=== PATIENT | male | born 1935 | race Two or more races ===

== ENCOUNTER 2017-09-15 17:15 | Inpatient (IN) | payer OTHER ==
[~2017-09-15] VITALS: Ht 165.1 cm; Wt 83.9 kg
[2017-09-15] MEDS ORDERED: DONEPEZIL HCL10 MG PO (22:05)
[2017-09-15] MEDS ORDERED: FENOFIBRATE145 MG PO (22:05)
[2017-09-15] MEDS ORDERED: LOSARTAN POTAS100 MG PO (22:05)
[2017-09-15] MEDS ORDERED: TRIAMTERENE-HC1 EAC1 PO (22:06)
[2017-09-19] MEDS ORDERED: CLOPIDOGREL BIS75 MG PO (17:44)
[2017-09-19] MEDS ORDERED: LOSARTAN POTAS100 MG PO (17:44)
[2017-09-19] MEDS ORDERED: SIMVASTATIN20 MG PO (17:45)
[2017-09-19] MEDS ORDERED: ASA-EC81 MG PO (17:45)
== END 2017-09-19 12:35 | disposition designated cancer center or children's hospital (05) | DRG 309 ==
LOC: ER 17:15 → SEC-K 21:59 → SURG 21:59 → MEDI 09-16 17:54
PROC: BW28ZZZ Computerized Tomography (CT Scan) of Head (ICD-10-PCS; 2017-09-15)
PROC: 4A12X4Z Monitoring of Cardiac Electrical Activity, External Approach (ICD-10-PCS; principal; 2017-09-16)
PROC: B246ZZZ Ultrasonography of Right and Left Heart (ICD-10-PCS; 2017-09-16)
PROC: C23GYZZ Positron Emission Tomographic (PET) Imaging of Myocardium using Other Radionuclide (ICD-10-PCS; 2017-09-17)
PROC: 4A12XM4 Monitoring of Cardiac Stress, External Approach (ICD-10-PCS; 2017-09-17)
PROC: 3E033HZ Introduction of Radioactive Substance into Peripheral Vein, Percutaneous Approach (ICD-10-PCS; 2017-09-17)
DX: I49.5 Sick sinus syndrome (principal); G40.89 Other seizures; E11.65 Type 2 diabetes mellitus with hyperglycemia; I20.8 Other forms of angina pectoris; F01.50 Vascular dementia, unspecified severity, without behavioral disturbance, psychotic disturbance, mood disturbance, and anxiety; E78.4 Other hyperlipidemia; I10 Essential (primary) hypertension; Z85.46 Personal history of malignant neoplasm of prostate; I25.2 Old myocardial infarction; I48.0 Paroxysmal atrial fibrillation; E83.42 Hypomagnesemia

== ENCOUNTER → 2017-09-15 | Outpatient (CLI) | payer OTHER ==
[~2017-09-15] MED LIST: ASA-EC81 MG PO; CLOPIDOGREL BIS75 MG PO; DONEPEZIL HCL10 MG PO; FENOFIBRATE145 MG PO; LOSARTAN POTAS100 MG PO; SIMVASTATIN20 MG PO; TRIAMTERENE-HC1 EAC1 PO
== END | disposition home or self-care (01) ==
LOC: EKG 14:21
DX: I20.8 Other forms of angina pectoris (principal); E11.65 Type 2 diabetes mellitus with hyperglycemia; I10 Essential (primary) hypertension

== ENCOUNTER 2017-10-31 14:12 | Outpatient (CLI) | payer OTHER | END 2017-10-31 14:25 | disposition home or self-care (01) | LOC: NUCLEAR 14:12 | DX: M81.0 Age-related osteoporosis without current pathological fracture (principal) ==

== ENCOUNTER 2018-11-30 08:40 | Outpatient (CLI) | payer OTHER | END 2018-11-30 08:45 | disposition home or self-care (01) | LOC: RAD 08:40 | DX: M54.5 Low back pain (principal); M54.2 Cervicalgia ==

== ENCOUNTER 2021-01-15 12:27 | Outpatient (CLI) | payer OTHER | END 2021-01-15 12:29 | disposition home or self-care (01) | LOC: NUCLEAR 12:27 | PROVIDERS: ATTEND Internal Medicine Endocrinology, Diabetes & Metabolism | DX: M85.89 Other specified disorders of bone density and structure, multiple sites (principal); Z13.820 Encounter for screening for osteoporosis ==

== ENCOUNTER 2023-02-06 08:18 | Outpatient (CLI) | payer OTHER | END 2023-02-06 08:21 | disposition home or self-care (01) | LOC: RX STUDY 08:18 | PROVIDERS: ATTEND Otolaryngology | DX: R13.10 Dysphagia, unspecified (principal) ==

== ENCOUNTER 2023-03-05 12:32 | Outpatient (CLI) | payer OTHER | END 2023-03-05 12:35 | disposition home or self-care (01) | LOC: NUCLEAR 12:32 | PROVIDERS: ATTEND Internal Medicine Endocrinology, Diabetes & Metabolism | DX: M85.89 Other specified disorders of bone density and structure, multiple sites (principal); Z13.820 Encounter for screening for osteoporosis ==

== ENCOUNTER 2023-07-14 16:43 | Inpatient (IN) | payer OTHER ==
[~2023-07-14] VITALS: Ht 170.2 cm; Wt 63.5 kg
--- NOTE | 2023-07-14 16:54 | NUR ---
SE RECIBE PTE MASCULINO DE 88 ANOS [address]ERTA Y DESORIENTADO EN [place] 3 ESFERAS. PARAMEDICOS QUE TRAEN A PTE DESDE HOGAR REFIEREN PTE PRECENTA INAPETENCIA. SE MONITOREAN SV YT SE UBICA EN OBSERBACION.
--- NOTE | 2023-07-14 17:09 | NUR ---
SE OBSERBA CATETER NOLEN PATENTE Y DRENANDO A GRAVEDAD. SE OBSERBA BENDAJE EN AMBOS PIES DEBIDO A LESSIONES POR PRECION.
--- NOTE | 2023-07-14 17:27 | NUR ---
SE ORIENTA FAMILIAR SOBRE RAY DE MUESTRAS LAS CUALES SE EXTRAEN BAJO MEDIDAS MEDIDAS ASEPTICAS,SE NOTIFICA CT PENDIENTE.
[2023-07-14 17:54] LABS: HEMATOCRIT 34.5 % (39.0-48.0); HEMOGLOBIN 11.9 g/dL (13-16.00); MEAN CORPUSCULAR HEMOGLOBIN 33.6 pg (27.00-32.0); MEAN CORPUSCULAR HGB CONC 34.6 g/dl (32.0-36.0); PLATELET COUNT 237 K/uL (150-450); RED BLOOD COUNT 3.55 M/uL (4.00-6.00); RED CELL DISTRIBUTION WIDTH 13.9 % (11.5-14.5)
[2023-07-14 18:05] LABS: PH,URINE 7.5 (5.0-8.0); URINE APPEARANCE Turbid; URINE BILIRRUBIN Negative (NEGATIVE); URINE BLOOD Small; URINE COLOR Yellow; URINE GLUCOSE Negative (NEGATIVE); URINE LEUKOCYTE Small; URINE NITRATE Negative; URINE PROTEIN Negative (NEGATIVE)
[2023-07-14 18:06] LABS: URINE EPITHELIAL CELLS 11.5 uL (0.0-38.8); URINE RBC 107.9 uL (0.0-20.8)
[2023-07-14 18:09] LABS: INR 1.09; PARTIAL THROMBOPLASTIN TIME 28.3 SECONDS (22.0-34.0); PROTHROMBIN TIME 11.4 SECONDS (9.0-11.5)
[2023-07-14 18:20] LABS: ALBUMIN 2.3 gm/dL (3.4-5.0); BILIRUBIN TOTAL 0.9 mg/dL (0.3-1.2); CREATININE SERUM 1.09 mg/dL (0.70-1.30); GFR 64.14; GLOBULINA 4.8 G/DL (2.4-3.5); POTASSIUM 3.89 mEq/L (3.5-5.1); TOTAL PROTEIN 7.1 gm/dL (6.4-8.2)
[2023-07-14 18:26] LABS: URINE BACTERIA > 9821.5 uL (0.0-1933)
[2023-07-14 18:27] LABS: URINE CRYSTALS MANY /HPF
[2023-07-14 18:58] LABS: ABG PH 7.432 (7.35-7.45); ABG PO2 73.8 mmHg (80-100); ABG pCO2 39.5 mmHg (35-45); BASE EXCESS 1.5 mmol/l; BICARBONATE 25.8 mmol/l (23-25); SaO2 95.2 %; allen test SATISFACTORY; o2 21 %; puncture site RADIAL LEFT
[2023-07-14] MEDS ORDERED: CEFTRIAXONE SODIUM 2,000 MG in 0.9 % SODIUM CHLORIDE 100 ML IV SCH (19:57)
[2023-07-14] MEDS ORDERED: ONDANSETRON HCL 4 MG in 0.9 % SODIUM CHLORIDE 50 ML IV PRN (20:00)
[2023-07-14] MEDS ORDERED: 0.9 % SODIUM CHLORIDE 1,000 ML IV SCH (20:00)
[2023-07-14] MEDS ORDERED: ACETAMINOPHEN 500 MG GEL..CAP PO PRN (20:00)
[2023-07-15] MEDS ORDERED: ATORVASTATIN CALCIUM 10 MG TABLET PO SCH (09:00)
[2023-07-15] MEDS ORDERED: CARBIDOPA/LEVODOPA 25/100 UDTAB PO SCH (09:00)
[2023-07-15] MEDS ORDERED: FAMOTIDINE/PF 20 MG in 0.9 % SODIUM CHLORIDE 8 ML IV PUSH SCH (09:00)
[2023-07-15] MEDS ORDERED: DONEPEZIL HCL 10 MG TABLET PO SCH (17:00)
[2023-07-17 08:59] LABS: HEMATOCRIT 32.3 % (39.0-48.0); HEMOGLOBIN 10.8 g/dL (13-16.00); MEAN CELL VOLUME 96.3 fL (80.0-100.00); MEAN CORPUSCULAR HEMOGLOBIN 32.4 pg (27.00-32.0); MEAN CORPUSCULAR HGB CONC 33.6 g/dl (32.0-36.0); PLATELET COUNT 250 K/uL (150-450); RED BLOOD COUNT 3.35 M/uL (4.00-6.00); RED CELL DISTRIBUTION WIDTH 14.1 % (11.5-14.5)
[2023-07-17] MEDS ORDERED: PANTOPRAZOLE SODIUM 40 MG/VIAL VIAL IV SCH (09:00)
[2023-07-17] MEDS ORDERED: fentaNYL CITRATE 50 MCG/ML AMPUL IV ONE (10:00)
[2023-07-17] MEDS ORDERED: MIDAZOLAM HCL 2 MG/2 ML VIAL IV ONE (10:00)
[2023-07-18] MEDS ORDERED: LIDOCAINE HCL/EPINEPHRINE 10MG/ML 1% 50ML IJ ONE (13:32)
[2023-07-18] MEDS ORDERED: BUPIVACAINE HCL/PF 0.5% 30ML ML ONE (13:32)
[2023-07-20] MEDS ORDERED: FAMOTIDINE/PF 20 MG/2 ML VIAL ONE (07:59)
[2023-07-21] MEDS ORDERED: levoFLOXacin IN DEXTROSE 5 % 5 MG/ML PIGGYBAG IV SCH (09:00)
[2023-07-21] MEDS ORDERED: IPRATROPIUM BROMIDE 0.5 MG/2.5 ML AMPUL.NEB IH SCH (09:52)
[2023-07-22 13:03] LABS: ABG pCO2 31.6 mmHg (35-45)
[2023-07-22 13:04] LABS: ABG PO2 49.3 mmHg (80-100)
[2023-07-22 13:05] LABS: BASE EXCESS -1.5 mmol/l; BICARBONATE 21.5 mmol/l (23-25); SaO2 86.4 %; Tco2 22.5 mmol/l; o2 32 %; puncture site RADIAL LEFT
[2023-07-22 13:06] LABS: allen test SATISFACTORY
[2023-07-22 14:26] LABS: ABG PH 7.459 (7.35-7.45); ABG PO2 63.5 mmHg (80-100); ABG pCO2 31.7 mmHg (35-45); BASE EXCESS -0.9 mmol/l; SaO2 93.2 %; Tco2 22.9 mmol/l
[2023-07-22 14:27] LABS: o2 50 %
[2023-07-22 14:28] LABS: allen test SATISFACTORY; puncture site RADIAL RIGHT
[2023-07-22] MEDS ORDERED: NYSTATIN 30 GM,SILVER SULFADIAZINE 50 GM,ZINC OXIDE 30 GM TOP SCH (17:00)
[2023-07-22] MEDS ORDERED: PANTOPRAZOLE SODIUM 40 MG TABLET.DR PO SCH (21:00)
[2023-07-23] MEDS ORDERED: levoFLOXacin 750 MG TABLET PO SCH (09:00)
[2023-07-23] MEDS ORDERED: DOXYCYCLINE HYCLATE 100 MG TABLET PO SCH (13:24)
[2023-07-24 07:53] LABS: HEMATOCRIT 37.5 % (39.0-48.0); HEMOGLOBIN 12.6 g/dL (13-16.00); MEAN CELL VOLUME 97.4 fL (80.0-100.00); MEAN CORPUSCULAR HEMOGLOBIN 32.6 pg (27.00-32.0); MEAN CORPUSCULAR HGB CONC 33.5 g/dl (32.0-36.0); PLATELET COUNT 164 K/uL (150-450); RED BLOOD COUNT 3.85 M/uL (4.00-6.00); RED CELL DISTRIBUTION WIDTH 15.1 % (11.5-14.5)
[2023-07-24 08:24] LABS: ALBUMIN 1.4 gm/dL (3.4-5.0); BILIRUBIN TOTAL 0.39 mg/dL (0.3-1.2); CREATININE SERUM 1.88 mg/dL (0.70-1.30); GFR 34.19; GLOBULINA 3.5 G/DL (2.4-3.5); POTASSIUM 4.18 mEq/L (3.5-5.1); TOTAL PROTEIN 4.9 gm/dL (6.4-8.2)
== END 2023-07-24 12:33 | disposition expired | DRG 356 ==
LOC: ER 16:43 → SURG 20:31 → SURH 07-21 14:38
PROVIDERS: General Practice; Internal Medicine; ADMIT Internal Medicine; ATTEND Internal Medicine
PROC: BB24ZZZ Computerized Tomography (CT Scan) of Bilateral Lungs (ICD-10-PCS; 2023-07-14)
PROC: 0JB70ZZ Excision of Back Subcutaneous Tissue and Fascia, Open Approach (ICD-10-PCS; principal; 2023-07-16)
PROC: 0JBR0ZZ Excision of Left Foot Subcutaneous Tissue and Fascia, Open Approach (ICD-10-PCS; 2023-07-16)
PROC: 0JBQ0ZZ Excision of Right Foot Subcutaneous Tissue and Fascia, Open Approach (ICD-10-PCS; 2023-07-16)
PROC: 0DH67UZ Insertion of Feeding Device into Stomach, Via Natural or Artificial Opening (ICD-10-PCS; 2023-07-16)
PROC: 0DJ08ZZ Inspection of Upper Intestinal Tract, Via Natural or Artificial Opening Endoscopic (ICD-10-PCS; 2023-07-17)
PROC: 0DH60UZ Insertion of Feeding Device into Stomach, Open Approach (ICD-10-PCS; 2023-07-18)
PROC: 3E0F7GC Introduction of Other Therapeutic Substance into Respiratory Tract, Via Natural or Artificial Opening (ICD-10-PCS; 2023-07-21)
DX: R13.19 Other dysphagia (principal); J18.9 Pneumonia, unspecified organism; L89.153 Pressure ulcer of sacral region, stage 3; L89.623 Pressure ulcer of left heel, stage 3; L89.613 Pressure ulcer of right heel, stage 3; N39.0 Urinary tract infection, site not specified; E46 Unspecified protein-calorie malnutrition; J98.11 Atelectasis; E11.628 Type 2 diabetes mellitus with other skin complications; E86.0 Dehydration; K44.9 Diaphragmatic hernia without obstruction or gangrene; R63.0 Anorexia; C61 Malignant neoplasm of prostate; L08.89 Other specified local infections of the skin and subcutaneous tissue; B96.4 Proteus (mirabilis) (morganii) as the cause of diseases classified elsewhere; B96.5 Pseudomonas (aeruginosa) (mallei) (pseudomallei) as the cause of diseases classified elsewhere; B95.2 Enterococcus as the cause of diseases classified elsewhere; B96.1 Klebsiella pneumoniae [K. pneumoniae] as the cause of diseases classified elsewhere; B96.7 Clostridium perfringens [C. perfringens] as the cause of diseases classified elsewhere; I11.9 Hypertensive heart disease without heart failure; G30.8 Other Alzheimer's disease; G20.A1 Parkinson's disease without dyskinesia, without mention of fluctuations; F02.C0 Dementia in other diseases classified elsewhere, severe, without behavioral disturbance, psychotic disturbance, mood disturbance, and anxiety; I73.89 Other specified peripheral vascular diseases; R09.02 Hypoxemia; R06.82 Tachypnea, not elsewhere classified; Z66 Do not resuscitate; Z68.21 Body mass index [BMI] 21.0-21.9, adult; Z74.01 Bed confinement status; Z95.0 Presence of cardiac pacemaker